=== PATIENT | female | born 1950 | race Two or more races ===

== ENCOUNTER 2020-07-15 14:02 | Inpatient (IN) | payer MEDICARE, MEDICAID ==
[~2020-07-15] VITALS: Ht 162.6 cm; Wt 64.1 kg
[2020-07-15] MEDS ORDERED: NITROGLYCERIN OINT 1GM/INCH UDPKT TD ONE (15:00)
[2020-07-15] MEDS ORDERED: SODIUM CHLORIDE 0.9% 1,000 ML IV ONE (15:00)
[2020-07-15] MEDS ORDERED: ASPIRIN 81MG TABLET PO ONE (15:00)
[2020-07-15] MEDS ORDERED: ALBUTEROL (0.083%) 2.5MG/3ML NEB HHN STA (15:04)
[2020-07-15] MEDS ORDERED: METHYLPREDNISOLONE SOD SUCC 125 MG/2 ML VIAL IV STA (15:04)
[2020-07-15] MEDS ORDERED: IPRATROPIUM BROMIDE (0.02%) 0.5MG/2.5ML NEB HHN STA (15:04)
[2020-07-15 15:38] LABS: CHLORIDE 106 mEq/L (98-107)
[2020-07-15 15:40] LABS: INR 1.1; PROTHROMBIN TIME 12.2 sec (9.6-11.0)
[2020-07-15 15:46] LABS: BASOPHILS % 0.4 % (0.0-2.0); HEMATOCRIT. 35.7 % (36.0-48.0); LYMPHOCYTES % 10.6 % (20.0-50.0); MEAN CORPUSCULAR HEMOGLOBIN 24.2 pg (28.0-32.0); MEAN CORPUSCULAR VOLUME 78.7 fL (81.0-99.0); MEAN PLATELET VOLUME 10.2 fl (7.4-10.4); MONOCYTES % 8.5 % (2.0-8.0); NEUTROPHILS % 80.5 % (40.0-76.0); PLATELET 268 x1000/uL (130-400); RED BLOOD CELL COUNT 4.53 mill/uL (4.2-5.4); RED CELL DISTRIBUTION WIDTH 19.5 % (11.6-14.6)
[2020-07-15] MEDS: DILTIAZEM HCL 5MG/ML 5ML VIAL IV PRN ×3 (16:27→17:22)
[2020-07-15] MEDS ORDERED: DILTIAZEM HCL 125 MG in DEXT 5% WATER 100 ML IV ONE ×2 (16:45→17:00)
[2020-07-15] MEDS ORDERED: DILTIAZEM HCL 5MG/ML 5ML VIAL IV ONE (16:45)
[2020-07-15] MEDS ORDERED: CLONIDINE 0.1MG TABLET PO PRN (18:30)
[2020-07-15] MEDS ORDERED: DOCUSATE SODIUM 100MG CAPSULE PO PRN (18:30)
[2020-07-15] MEDS ORDERED: ACETAMINOPHEN 325MG TABLET PO PRN (18:30)
[2020-07-15] MEDS ORDERED: ONDANSETRON HCL 4MG/2ML INJ IV PRN (18:30)
[2020-07-15] MEDS ORDERED: MORPHINE SULFATE 2 MG/ML CPJ (NOT FOR IM USE) IV PRN (18:30)
[2020-07-15] MEDS ORDERED: ENOXAPARIN 40MG/0.4ML SYR SUBCUT SCH (18:30)
[2020-07-15] MEDS ORDERED: DILTIAZEM HCL 125 MG in DEXT 5% WATER 100 ML IV PRN (18:45)
[2020-07-15] MEDS ORDERED: ENOXAPARIN 30MG/0.3ML SYR SUBCUT SCH (20:00)
[2020-07-16] MEDS ORDERED: DILTIAZEM HCL 125 MG in DEXT 5% WATER 100 ML IV PRN (06:15)
[2020-07-16 06:40] LABS: CHLORIDE 102 mEq/L (98-107)
[2020-07-16 06:42] LABS: HEMATOCRIT. 34.3 % (36.0-48.0); HEMOGLOBIN. 10.7 g/dL (12.0-16.0); MEAN CORPUSCULAR HEMOGLOBIN 24.7 pg (28.0-32.0); MEAN CORPUSCULAR VOLUME 79.3 fL (81.0-99.0); MEAN PLATELET VOLUME 10.5 fl (7.4-10.4); PLATELET 238 x1000/uL (130-400); RED BLOOD CELL COUNT 4.32 mill/uL (4.2-5.4); RED CELL DISTRIBUTION WIDTH 19.3 % (11.6-14.6)
[2020-07-16 06:48] LABS: LDL CHOLESTEROL 133 mg/dL (5-100)
[2020-07-16 06:49] LABS: CREATINE KINASE 197 IU/L (26-192); HDL CHOLESTEROL 38 mg/dL (40-59); T4 FREE 1.21 ng/dL (0.76-1.46)
[2020-07-16] MEDS: ASPIRIN 81MG EC TABLET PO SCH (12:14)
[2020-07-16] MEDS: DILTIAZEM HCL 30MG TABLET PO SCH ×2 (12:14→18:00)
[2020-07-16] MEDS: FUROSEMIDE 40MG/4ML VIAL IVP SCH ×2 (12:22→20:41)
[2020-07-16] MEDS ORDERED: IPRATROPIUM BROMIDE (0.02%) 0.5MG/2.5ML NEB HHN PRN (12:30)
[2020-07-16] MEDS: ENOXAPARIN 60MG/0.6ML SYR SUBCUT SCH (12:41)
[2020-07-16 14:26] LABS: CLARITY URINE CLEAR (CLEAR); COLOR URINE YELLOW (YELLOW); KETONES URINE NEGATIVE (NEGATIVE); LEUKOCYTE ESTERASE URINE NEGATIVE (NEGATIVE); NITRITE URINE NEGATIVE (NEGATIVE); OCCULT BLOOD URINE NEGATIVE (NEGATIVE); PROTEIN URINE 3+ (NEGATIVE); SPECIFIC GRAVITY URINE 1.014 (1.005-1.030); UROBILINOGEN URINE 0.2 E.U./dL (0.2-1.0)
[2020-07-16 15:02] LABS: NUCLEATED RED BLOOD CELLS 2 /100 WBC
[2020-07-16 15:03] LABS: PLATELET ESTIMATE NORMAL
[2020-07-16 18:54] VITALS: BP 115/65
[2020-07-16 20:00] VITALS: BP 113/69
[2020-07-16 20:21] VITALS: BP 113/69
[2020-07-16] MEDS: ATORVASTATIN CALCIUM 20MG TABLET PO SCH (20:42)
[2020-07-16 22:00] VITALS: BP 98/63
[2020-07-17] VITALS (21 sets, daily range): BP systolic 92–125; BP diastolic 35–83
[2020-07-17] MEDS: DILTIAZEM HCL 30MG TABLET PO SCH ×2 (01:02→06:00)
[2020-07-17] MEDS: FUROSEMIDE 40MG/4ML VIAL IVP SCH ×2 (06:11→18:49)
[2020-07-17] MEDS ORDERED: AMIODARONE HCL 150 MG in DEXT 5% WATER 100 ML IV NR (09:00)
[2020-07-17] MEDS: ASPIRIN 81MG EC TABLET PO SCH (09:41)
[2020-07-17] MEDS: ENOXAPARIN 60MG/0.6ML SYR SUBCUT SCH (09:41)
[2020-07-17 10:02] LABS: CREATINE KINASE 105 IU/L (26-192)
[2020-07-17 10:26] LABS: HEMATOCRIT. 34.1 % (36.0-48.0); HEMOGLOBIN. 10.7 g/dL (12.0-16.0); MEAN CORPUSCULAR HEMOGLOBIN 24.6 pg (28.0-32.0); MEAN CORPUSCULAR VOLUME 78.5 fL (81.0-99.0); MEAN PLATELET VOLUME 10.2 fl (7.4-10.4); PLATELET 198 x1000/uL (130-400); RED BLOOD CELL COUNT 4.34 mill/uL (4.2-5.4); RED CELL DISTRIBUTION WIDTH 19.8 % (11.6-14.6)
[2020-07-17] MEDS: AMIODARONE HCL 900 MG in DEXT 5% WATER 482 ML IV SCH ×2 (10:51→17:27)
[2020-07-17 14:14] LABS: NUCLEATED RED BLOOD CELLS 1 /100 WBC; PLATELET ESTIMATE NORMAL
[2020-07-17] MEDS: METOPROLOL TARTRATE 25MG TABLET PO SCH (20:14)
[2020-07-17] MEDS: ATORVASTATIN CALCIUM 20MG TABLET PO SCH (20:14)
[2020-07-18] VITALS (11 sets, daily range): BP systolic 93–114; BP diastolic 52–76
[2020-07-18 00:12] LABS: TOTAL IRON BINDING CAPACITY 377 ug/dL (250-450)
[2020-07-18] MEDS ORDERED: AMIODARONE HCL 200 MG TABLET PO SCH (07:30)
[2020-07-18] MEDS: METOPROLOL TARTRATE 25MG TABLET PO SCH ×2 (07:58→20:46)
[2020-07-18] MEDS: AMIODARONE HCL 200 MG TABLET PO SCH ×2 (09:06→20:46)
[2020-07-18] MEDS: FUROSEMIDE 40MG TABLET PO SCH (09:06)
[2020-07-18] MEDS: ENOXAPARIN 60MG/0.6ML SYR SUBCUT SCH (09:06)
[2020-07-18] MEDS: ASPIRIN 81MG EC TABLET PO SCH (09:06)
[2020-07-18] MEDS ORDERED: BARIUM SULFATE 176 GM SUSP.RECON ONE (09:37)
[2020-07-18] MEDS: PANTOPRAZOLE SODIUM 40 MG/VIAL IV SCH ×2 (14:30→20:05)
[2020-07-18 15:46] LABS: BASOPHILS % 0.3 % (0.0-2.0); EOSINOPHILS % 0.6 % (0.0-5.0); HEMATOCRIT. 32.9 % (36.0-48.0); HEMOGLOBIN. 10.4 g/dL (12.0-16.0); LYMPHOCYTES % 10.1 % (20.0-50.0); MEAN CORPUSCULAR HEMOGLOBIN 24.8 pg (28.0-32.0); MEAN CORPUSCULAR VOLUME 78.6 fL (81.0-99.0); MEAN PLATELET VOLUME 9.7 fl (7.4-10.4); MONOCYTES % 8.5 % (2.0-8.0); NEUTROPHILS % 80.5 % (40.0-76.0); PLATELET 170 x1000/uL (130-400); RED BLOOD CELL COUNT 4.18 mill/uL (4.2-5.4); RED CELL DISTRIBUTION WIDTH 19.7 % (11.6-14.6)
[2020-07-18] MEDS: ATORVASTATIN CALCIUM 20MG TABLET PO SCH (20:45)
[2020-07-19] VITALS (11 sets, daily range): BP systolic 91–132; BP diastolic 53–79
[2020-07-19 06:39] LABS: BASOPHILS % 0.4 % (0.0-2.0); EOSINOPHILS % 1.1 % (0.0-5.0); HEMATOCRIT. 34.4 % (36.0-48.0); HEMOGLOBIN. 10.9 g/dL (12.0-16.0); LYMPHOCYTES % 13.6 % (20.0-50.0); MEAN CORPUSCULAR HEMOGLOBIN 24.8 pg (28.0-32.0); MEAN CORPUSCULAR VOLUME 78.1 fL (81.0-99.0); MEAN PLATELET VOLUME 10.3 fl (7.4-10.4); MONOCYTES % 10.8 % (2.0-8.0); NEUTROPHILS % 74.1 % (40.0-76.0); PLATELET 140 x1000/uL (130-400); RED BLOOD CELL COUNT 4.41 mill/uL (4.2-5.4); RED CELL DISTRIBUTION WIDTH 19.5 % (11.6-14.6)
[2020-07-19 06:51] LABS: CHLORIDE 102 mEq/L (98-107)
[2020-07-19 06:58] LABS: PARTIAL THROMBOPLASTIN TIME 23.2 sec (23.4-31.0); PROTHROMBIN TIME 10.5 sec (9.6-11.0)
[2020-07-19] MEDS ORDERED: LIDOCAINE HCL 1% 20ML VIAL (Pyxis) INJ ONE (07:39)
[2020-07-19] MEDS ORDERED: FUROSEMIDE 40MG TABLET PO SCH (09:00)
[2020-07-19] MEDS: PANTOPRAZOLE SODIUM 40 MG/VIAL IV SCH ×2 (11:31→20:34)
[2020-07-19] MEDS: AMIODARONE HCL 200 MG TABLET PO SCH ×2 (11:31→20:34)
[2020-07-19] MEDS: METOPROLOL TARTRATE 25MG TABLET PO SCH ×2 (11:35→20:34)
[2020-07-19] MEDS: FUROSEMIDE 40MG TABLET PO SCH (11:35)
[2020-07-19] MEDS: IRON SUCROSE COMPLEX 100 MG/5 ML ML IV SCH (12:37)
[2020-07-19] MEDS: LORAZEPAM 1MG TABLET PO PRN (20:34)
[2020-07-19] MEDS: ATORVASTATIN CALCIUM 20MG TABLET PO SCH (20:34)
[2020-07-20] VITALS (12 sets, daily range): BP systolic 94–128; BP diastolic 58–83
[2020-07-20] MEDS: IRON SUCROSE COMPLEX 100 MG/5 ML ML IV SCH (08:34)
[2020-07-20] MEDS: METOPROLOL TARTRATE 25MG TABLET PO SCH ×2 (08:37→20:55)
[2020-07-20] MEDS: PANTOPRAZOLE SODIUM 40 MG/VIAL IV SCH ×2 (08:38→20:53)
[2020-07-20] MEDS: FUROSEMIDE 40MG TABLET PO SCH (08:38)
[2020-07-20] MEDS: AMIODARONE HCL 200 MG TABLET PO SCH ×2 (08:38→20:56)
[2020-07-20 09:18] LABS: BASOPHILS % 0.3 % (0.0-2.0); CHLORIDE 103 mEq/L (98-107); EOSINOPHILS % 0.8 % (0.0-5.0); HEMATOCRIT. 32.2 % (36.0-48.0); HEMOGLOBIN. 10.1 g/dL (12.0-16.0); LYMPHOCYTES % 9.5 % (20.0-50.0); MEAN CORPUSCULAR HEMOGLOBIN 24.3 pg (28.0-32.0); MEAN CORPUSCULAR VOLUME 77.8 fL (81.0-99.0); MEAN PLATELET VOLUME 10.5 fl (7.4-10.4); MONOCYTES % 6.3 % (2.0-8.0); NEUTROPHILS % 83.1 % (40.0-76.0); PLATELET 161 x1000/uL (130-400); RED BLOOD CELL COUNT 4.13 mill/uL (4.2-5.4); RED CELL DISTRIBUTION WIDTH 19.4 % (11.6-14.6)
[2020-07-20] MEDS: POTASSIUM CHLORIDE 20MEQ/PACKET PO NR ×2 (10:27→10:45)
[2020-07-20] MEDS ORDERED: POTASSIUM CHLORIDE 20MEQ TABLET SR PO NR (10:57)
[2020-07-20] MEDS ORDERED: POTASSIUM CHLORIDE INJ 40 MEQ in DEXT 5% WATER 250 ML IV NR (11:00)
[2020-07-20] MEDS ORDERED: MAGNESIUM 2 G PREMIX 50 ML IV NR (11:30)
[2020-07-20] MEDS: ENOXAPARIN 60MG/0.6ML SYR SUBCUT SCH ×2 (14:02→20:53)
[2020-07-20] MEDS: CLONAZEPAM 1MG TABLET PO SCH ×2 (15:28→20:53)
[2020-07-20] MEDS: ATORVASTATIN CALCIUM 20MG TABLET PO SCH (20:53)
[2020-07-21] VITALS (12 sets, daily range): BP systolic 90–137; BP diastolic 53–74
[2020-07-21] MEDS: CLONAZEPAM 1MG TABLET PO SCH ×3 (05:23→21:02)
[2020-07-21] MEDS: PANTOPRAZOLE SODIUM 40 MG/VIAL IV SCH (08:33)
[2020-07-21] MEDS: ASPIRIN 81MG EC TABLET PO SCH (08:34)
[2020-07-21] MEDS: AMIODARONE HCL 200 MG TABLET PO SCH ×2 (08:34→21:01)
[2020-07-21] MEDS: FUROSEMIDE 40MG TABLET PO SCH (08:35)
[2020-07-21] MEDS: METOPROLOL TARTRATE 25MG TABLET PO SCH ×2 (08:35→21:02)
[2020-07-21] MEDS: ENOXAPARIN 60MG/0.6ML SYR SUBCUT SCH ×2 (08:38→21:01)
[2020-07-21] MEDS: IRON SUCROSE COMPLEX 100 MG/5 ML ML IV SCH (09:07)
[2020-07-21 12:05] LABS: BASOPHILS % 0.6 % (0.0-2.0); EOSINOPHILS % 2.2 % (0.0-5.0); HEMATOCRIT. 30.8 % (36.0-48.0); HEMOGLOBIN. 9.5 g/dL (12.0-16.0); LYMPHOCYTES % 12.2 % (20.0-50.0); MEAN CORPUSCULAR HEMOGLOBIN 24.2 pg (28.0-32.0); MEAN CORPUSCULAR VOLUME 78.2 fL (81.0-99.0); MEAN PLATELET VOLUME 10.4 fl (7.4-10.4); MONOCYTES % 11.4 % (2.0-8.0); NEUTROPHILS % 73.6 % (40.0-76.0); PLATELET 145 x1000/uL (130-400); RED BLOOD CELL COUNT 3.93 mill/uL (4.2-5.4); RED CELL DISTRIBUTION WIDTH 19.4 % (11.6-14.6)
[2020-07-21] MEDS ORDERED: CLONAZEPAM 1MG TABLET PO SCH (14:00)
[2020-07-21] MEDS ORDERED: AMIODARONE HCL 150 MG in DEXT 5% WATER 100 ML IV SCH (15:00)
[2020-07-21] MEDS: PANTOPRAZOLE 40MG DR TABLET PO SCH (21:01)
[2020-07-21] MEDS: ATORVASTATIN CALCIUM 20MG TABLET PO SCH (21:02)
[2020-07-22] VITALS (10 sets, daily range): BP systolic 92–105; BP diastolic 38–74
[2020-07-22] MEDS: LORAZEPAM 1MG TABLET PO PRN (01:06)
[2020-07-22] MEDS: CLONAZEPAM 1MG TABLET PO SCH ×2 (06:22→14:00)
[2020-07-22] MEDS: METOPROLOL TARTRATE 25MG TABLET PO SCH (09:00)
[2020-07-22 09:21] LABS: BASOPHILS % 0.6 % (0.0-2.0); EOSINOPHILS % 2.2 % (0.0-5.0); HEMATOCRIT. 29.7 % (36.0-48.0); HEMOGLOBIN. 9.7 g/dL (12.0-16.0); LYMPHOCYTES % 17.1 % (20.0-50.0); MEAN CORPUSCULAR HEMOGLOBIN 25.4 pg (28.0-32.0); MEAN CORPUSCULAR VOLUME 77.5 fL (81.0-99.0); MEAN PLATELET VOLUME 9.7 fl (7.4-10.4); MONOCYTES % 10.9 % (2.0-8.0); NEUTROPHILS % 69.2 % (40.0-76.0); PLATELET 152 x1000/uL (130-400); RED BLOOD CELL COUNT 3.84 mill/uL (4.2-5.4); RED CELL DISTRIBUTION WIDTH 19.5 % (11.6-14.6)
[2020-07-22] MEDS: AMIODARONE HCL 200 MG TABLET PO SCH (09:34)
[2020-07-22] MEDS: ASPIRIN 81MG EC TABLET PO SCH (09:34)
[2020-07-22] MEDS: PANTOPRAZOLE 40MG DR TABLET PO SCH (09:34)
[2020-07-22] MEDS: FUROSEMIDE 40MG TABLET PO SCH (09:34)
[2020-07-22] MEDS: ENOXAPARIN 60MG/0.6ML SYR SUBCUT SCH (09:35)
[2020-07-22 15:06] LABS: ANTI-NUCLEAR ANTIBODIES DIRECT Negative (Negative)
[2020-07-22] MEDS ORDERED: APIXABAN 5 MG TABLET PO SCH (17:00)
== END 2020-07-22 17:00 | DRG 201 ==
LOC: ER 14:02 → EDBEDREQTM 16:46 → EDBEDREQ 16:46 → EDBEDREQSVC 16:46 → MICUSO 17:52 → EDBEDREQ 18:03 → EDBEDREQTM 18:03 → EDBEDREQSVC 07-16 11:52 → ENRESERV 07-16 11:56 → EDBEDREQSVC 07-16 13:01 → ENRESERV 07-16 15:13 → CVICU 07-16 17:49 → 3WST 07-16 17:50
PROVIDERS: ADMIT Hospitalist; ATTEND Hospitalist
PROC: 02HV33Z Insertion of Infusion Device into Superior Vena Cava, Percutaneous Approach (ICD-10-PCS; principal; 2020-07-19)
PROC: B518ZZA Fluoroscopy of Superior Vena Cava, Guidance (ICD-10-PCS; 2020-07-19)
PROC: B548ZZA Ultrasonography of Superior Vena Cava, Guidance (ICD-10-PCS; 2020-07-19)
DX: I48.91 Unspecified atrial fibrillation (principal); I13.0 Hypertensive heart and chronic kidney disease with heart failure and stage 1 through stage 4 chronic kidney disease, or unspecified chronic kidney disease; I50.43 Acute on chronic combined systolic (congestive) and diastolic (congestive) heart failure; J96.91 Respiratory failure, unspecified with hypoxia; N17.9 Acute kidney failure, unspecified; E87.1 Hypo-osmolality and hyponatremia; J44.9 Chronic obstructive pulmonary disease, unspecified; D64.9 Anemia, unspecified; E78.5 Hyperlipidemia, unspecified; F17.210 Nicotine dependence, cigarettes, uncomplicated; N18.9 Chronic kidney disease, unspecified; E87.6 Hypokalemia; F11.90 Opioid use, unspecified, uncomplicated; K80.20 Calculus of gallbladder without cholecystitis without obstruction; R74.01 Elevation of levels of liver transaminase levels; N27.0 Small kidney, unilateral; Z20.822 Contact with and (suspected) exposure to COVID-19; K22.4 Dyskinesia of esophagus; Z59.0 Homelessness; Z79.01 Long term (current) use of anticoagulants
CPT/HCPCS: 36415; 36573; 71045; 74220; 76770; 80048; 80053; 80061; 81003; 82550; 82570; 82728; 83540; 83550; 83735; 83880; 84156; 84439; 84443; 84450; 84484; 85025; 86038; 86160; 87426; 93005; 93306; 93923; 93970; 94640; 97162; 99285; C1725; C9113; J0282; J1650; J1940; J2930; J3475; J3480; J3490; J7060